=== PATIENT | female | born 1970 | race Two or more races ===

== ENCOUNTER → 2018-07-14 | Outpatient (CLI) | payer OTHER | END | disposition home or self-care (01) | LOC: EDBD 15:47 → LAB 15:47 | DX: J11.1 Influenza due to unidentified influenza virus with other respiratory manifestations (principal); J06.9 Acute upper respiratory infection, unspecified; J11.81 Influenza due to unidentified influenza virus with encephalopathy ==

== ENCOUNTER 2018-09-19 14:21 | Outpatient (CLI) | payer OTHER | END 2018-09-19 14:29 | disposition home or self-care (01) | LOC: LAB 14:21 | DX: J11.1 Influenza due to unidentified influenza virus with other respiratory manifestations (principal) ==

== ENCOUNTER 2018-12-07 10:04 | Outpatient (CLI) | payer OTHER | END 2018-12-07 10:14 | disposition home or self-care (01) | LOC: LAB 10:04 | DX: J11.81 Influenza due to unidentified influenza virus with encephalopathy (principal); J06.9 Acute upper respiratory infection, unspecified ==

== ENCOUNTER 2018-12-31 16:14 | Emergency (ER) | payer OTHER ==
[~2018-12-31] VITALS: Ht 170.2 cm; Wt 85.7 kg
== END 2018-12-31 20:03 | disposition home or self-care (01) ==
LOC: ER 16:14
DX: J45.998 Other asthma (principal)

== ENCOUNTER 2019-01-04 14:09 | Emergency (ER) | payer OTHER ==
[~2019-01-04] VITALS: Ht 170.2 cm; Wt 86.2 kg
[2019-01-04] MEDS ORDERED: XOPENEX0.63 MG/3 (15:05)
[2019-01-04] MEDS ORDERED: BUDEO.25 (15:05)
[2019-01-04] MEDS ORDERED: PROMETH-CODEIN 65 ML PO (22:14)
[2019-01-04] MEDS ORDERED: DOXYCYCLINE HY100 MG PO (22:14)
[2019-01-04] MEDS ORDERED: IPRAT-ALBUT 0.5-3 ML IH (22:14)
[2019-01-04] MEDS ORDERED: INTESTINEX680 M1 PO (22:14)
== END 2019-01-04 22:19 | disposition home or self-care (01) ==
LOC: ER 14:09
DX: B96.0 Mycoplasma pneumoniae [M. pneumoniae] as the cause of diseases classified elsewhere (principal); J06.9 Acute upper respiratory infection, unspecified

== ENCOUNTER 2019-01-11 22:16 | Emergency (ER) | payer OTHER ==
[~2019-01-11] VITALS: Ht 170.2 cm; Wt 81.6 kg
[~2019-01-11 22:16] MED LIST: BUDEO.25; DOXYCYCLINE HY100 MG PO; INTESTINEX680 M1 PO; IPRAT-ALBUT 0.5-3 ML IH; PROMETH-CODEIN 65 ML PO; XOPENEX0.63 MG/3
[2019-01-11] MEDS ORDERED: IPRAT-ALBUT 0.5-3 ML IH (22:31)
[2019-01-11] MEDS ORDERED: DOXYCYCLINE HY100 MG PO (22:31)
[2019-01-12] MEDS ORDERED: NORFLEX100MG PO (01:06)
== END 2019-01-12 01:15 | disposition home or self-care (01) ==
LOC: ER 22:16
DX: M54.89 Other dorsalgia (principal); J06.9 Acute upper respiratory infection, unspecified

== ENCOUNTER 2019-06-21 09:51 | Emergency (ER) | payer OTHER ==
[~2019-06-21] VITALS: Ht 170.2 cm; Wt 89.8 kg
[~2019-06-21 09:51] MED LIST changes: +NORFLEX100MG PO
[2019-06-21] MEDS ORDERED: SINGULAIR5 MG PO (10:27)
[2019-06-21] MEDS ORDERED: ULTRACET PO (13:36)
[2019-06-21] MEDS ORDERED: SKELAXIN800 MG PO (13:36)
== END 2019-06-21 13:59 | disposition home or self-care (01) ==
LOC: ER 09:51
DX: M54.2 Cervicalgia (principal); M62.838 Other muscle spasm

== ENCOUNTER 2024-08-17 11:21 | Emergency (ER) | payer OTHER ==
[~2024-08-17] VITALS: Ht 170.2 cm; Wt 86.2 kg
[~2024-08-17 11:21] MED LIST changes: +SINGULAIR5 MG PO; +SKELAXIN800 MG PO; +ULTRACET PO
[2024-08-17] MEDS ORDERED: TRELEGY ELLIPT1 EAC1 IH (11:51)
[2024-08-17 13:13] LABS: HEMATOCRIT 42.1 % (36.0-45.00); HEMOGLOBIN 13.9 g/dL (12.0-15.00); MEAN CELL VOLUME 89.3 fL (80.00-100.00); MEAN CORPUSCULAR HEMOGLOBIN 29.5 pg (27.00-32.0); PLATELET COUNT 282 K/uL (150-450); RED BLOOD COUNT 4.72 M/uL (4.00-6.00); RED CELL DISTRIBUTION WIDTH 13.8 % (11.5-14.5)
[2024-08-17 13:39] LABS: COVID-19 AG NEGATIVE (NEGATIVE)
[2024-08-17 13:46] LABS: CALCIUM 9.6 mg/dL (8.5-10.1); CREATININE SERUM 0.82 mg/dL (0.55-1.02); GFR 72.65; POTASSIUM 4.25 mEq/L (3.5-5.1)
[2024-08-17 13:47] LABS: INFLUENZA A AG NEGATIVE (NEGATIVE)
== END 2024-08-17 14:23 | disposition home or self-care (01) ==
LOC: ER 11:22
PROVIDERS: General Practice
DX: J45.909 Unspecified asthma, uncomplicated (principal); R05.9 Cough, unspecified; Z20.822 Contact with and (suspected) exposure to COVID-19; Z88.1 Allergy status to other antibiotic agents; Z88.6 Allergy status to analgesic agent; Z91.018 Allergy to other foods